=== PATIENT | female | born 1940 | race Caucasian/White ===

== ENCOUNTER → 2019-04-01 | Outpatient (CLI) | payer BC ==
--- NOTE | 2019-04-02 09:25 | RAD ---
CHEST PA LATERAL History: Pleurisy Comparison: 06/21/2011 two-view chest x-ray exam. Findings: Frontal and lateral views of chest were obtained. Postoperative cervical spine fusion noted. The cardiomediastinal silhouette is normal. Pulmonary vasculature is normal. The lungs are clear. No pleural effusion or pneumothorax is seen. There is no acute bone abnormality. IMPRESSION: No acute cardiopulmonary process. Electronically signed by: Martín Kilpatrick MD (04/02/2019 9:22 AM) [facility]
== END | disposition home or self-care (01) ==
LOC: RAD 12:03
PROVIDERS: ATTEND Family Medicine
DX: R09.1 Pleurisy (principal)
CPT/HCPCS: 71046